=== PATIENT | female | born 1955 | race Caucasian/White ===

== ENCOUNTER 2017-08-14 09:48 | Inpatient (IN) | payer MEDICARE, MEDICAID ==
[~2017-08-14] VITALS: Ht 162.6 cm; Wt 104.7 kg
[~2017-08-14 09:48] MED LIST: ALLO100T PO; ATOR20TA PO; BUSP5TAB3 PO; DOCU100C23 PO; FLUT1DIS11; MONT10TA21 PO; NORCO10T PO; OXYB5TAB80 PO; PANT40TA4 PO; SPIIN IH; TOP100T PO; TOPI100T18 PO; TRAZ-91 PO
[2017-08-14] MEDS ORDERED: normal saline 1000ML IV soln IVB ONE (11:30)
[2017-08-14] MEDS ORDERED: albuterol 1.25 MG/3 ML (1/2 strength) nebule NEB ONE (11:30)
[2017-08-14] MEDS ORDERED: albuterol 2.5 MG/3 ML nebule ONE (11:36)
[2017-08-14 11:52] LABS: BASOPHILS % (AUTO) 0.2 % (0-1); EOSINOPHILS # (AUTO) 0.5 X10'3 (0-0.9); EOSINOPHILS % (AUTO) 2.9 % (0-6); HEMATOCRIT 35.9 % (35.0-45.0); HEMOGLOBIN 12.3 g/dl (12.0-16.0); LYMPHOCYTES # (AUTO) 1.4 X10'3 (1.1-4.8); LYMPHOCYTES % (AUTO) 7.7 % (21-51); MEAN CORPUSCULAR HEMOGLOBIN 32.3 PG (27.0-31.0); MEAN CORPUSCULAR HGB CONC 34.2 % (33.0-36.5); MEAN CORPUSCULAR VOLUME 94.3 FL (78-98); MEAN PLATELET VOLUME 5.9 FL (7.4-10.4); MONOCYTES # (AUTO) 1.1 X10'3 (0-0.9); MONOCYTES % (AUTO) 5.9 % (2-12); NEUTROPHILS % (AUTO) 83.3 % (42-75); PLATELET COUNT 412 X10'3 (140-440); RED BLOOD COUNT 3.81 X10'6 (4.20-5.60); RED CELL DISTRIBUTION WIDTH 12.5 % (11.5-14.5)
[2017-08-14 12:15] LABS: ALANINE AMINOTRANSFERASE 55 U/L (12-78); ALBUMIN 2.6 G/DL (3.4-5.0); ALBUMIN/GLOBULIN RATIO 0.5 (1.1-1.5); ALKALINE PHOSPHATASE 228 IU/L (46-116); ANION GAP 14 (8-16); ASPARTATE AMINO TRANSFERASE 36 U/L (10-37); BILIRUBIN,TOTAL 0.5 MG/DL (0.1-1.0); BLOOD UREA NITROGEN 14 MG/DL (7-18); BUN/CREATININE RATIO 13.1 (6.6-38.0); CALCIUM 9.2 MG/DL (8.5-10.1); CHLORIDE 104 MMOL/L (99-107); CREATININE 1.07 MG/DL (0.40-0.90); GLUCOSE 114 MG/DL (70-104); PARTIAL THROMBOPLASTIN TIME 35 SECONDS (22-32); PROTHROMBIN TIME 10.8 SECONDS (9.0-12.0); SODIUM 140 MMOL/L (135-145); TOTAL PROTEIN 7.7 G/DL (6.4-8.2); eGFR 52 ML/MIN
[2017-08-14] MEDS ORDERED: azithromycin/NS 500mg/250ml 250 ML IV ONE (13:10)
[2017-08-14] MEDS ORDERED: CefTRIAXone/D5W-Rocephin 1gm 50 ML IV ONE (13:10)
[2017-08-14 13:11] LABS: CLARITY,URINE CLEAR (Clear); COLOR,URINE YELLOW (Yellow); GLUCOSE, URINE NEGATIVE (Neg); KETONES,URINE 40 mg/dl (Neg); LEUKOCYTE ESTERASE ,URINE NEGATIVE (Neg); NITRITES, URINE NEGATIVE (Neg); OCCULT BLOOD,URINE TRACE-INTACT (Neg); PH,URINE 7.5 (4.8-8.0); PROTEIN,URINE 100 mg/dl (Neg)
[2017-08-14 13:15] LABS: UA COLLECTION TYPE CLN CATCH MIDSTREAM
[2017-08-14 13:18] LABS: RBC,URINE 0-2 /HPF (0-2); WBC,URINE 0-4 /HPF (0-4)
[2017-08-14 13:19] LABS: BACTERIA,URINE 1+ /HPF (Neg); SQUAMOUS EPITHELIAL CELL,UR MODERATE /LPF (FEW)
[2017-08-14] MEDS ORDERED: ipratropium/albuterol 3ml nebule NEB ONE (13:20)
[2017-08-14] MEDS ORDERED: methylPREDNISolone sod succ 125mg/2ml vial IV ONE (13:40)
[2017-08-14] MEDS: potassium 10mEq/100ml NS w/LIDOcaine (10mg/bag) IV SCH ×2 (13:42→16:11)
[2017-08-14] MEDS ORDERED: ASPI-1265 PO (14:03)
[2017-08-14] MEDS ORDERED: LAMO25TA62 PO ×2 (14:03)
[2017-08-14] MEDS ORDERED: potassium Cl 20 mEq SR tablet PO STA (14:11)
[2017-08-14] MEDS ORDERED: potassium Cl 40MEQ/NS 500ml 500 ML IV PRN ×2 (14:15)
[2017-08-14] MEDS ORDERED: albuterol 2.5 MG/3 ML nebule NEB PRN (14:15)
[2017-08-14] MEDS ORDERED: dextrose 50%-water 50ml dispensing syringe IV PRN ×2 (14:15)
[2017-08-14] MEDS ORDERED: magnesium 4gm in 100ml NS 100 ML IV PRN (14:15)
[2017-08-14] MEDS ORDERED: magnesium 2GM in 50ml NS 50 ML IV PRN (14:15)
[2017-08-14] MEDS ORDERED: MESSAGE TO PHARMACY PO ONE (14:15)
[2017-08-14] MEDS ORDERED: LORazepam 0.5 MG tablet PO PRN (14:15)
[2017-08-14] MEDS ORDERED: bisacodyl 10mg suppository rectal RC PRN (14:15)
[2017-08-14] MEDS ORDERED: morphine 2 MG/ML inj. syringe IV PRN (14:15)
[2017-08-14] MEDS ORDERED: glucagon, human recombinant 1mg kit SUBCUT PRN (14:15)
[2017-08-14] MEDS ORDERED: dextrose ORAL solution 15 GM/59 ML bottle PO PRN ×2 (14:15)
[2017-08-14] MEDS ORDERED: magnesium Cl slow-release 64mg tablet PO PRN (14:15)
[2017-08-14] MEDS ORDERED: magnesium hydroxide 30ml (MOM) UD suspension PO PRN (14:15)
[2017-08-14] MEDS ORDERED: ondansetron/PF 4mg/2ml inj IV PRN (14:15)
[2017-08-14] MEDS ORDERED: mag hydrox/Alum hydrox/simeth 30ml oral suspension PO PRN (14:15)
[2017-08-14] MEDS ORDERED: acetaminophen 325mg tablet PO PRN (14:15)
[2017-08-14] MEDS ORDERED: potassium Cl 20 mEq SR tablet PO PRN (14:15)
[2017-08-14] MEDS ORDERED: insulin Lispro (HumaLOG) vial - multi-dose SQ SCH (14:15)
[2017-08-14] MEDS ORDERED: HYDROcodone/acetaminophen 5mg/325mg tablet PO PRN (14:15)
[2017-08-14] MEDS ORDERED: guaiFENesin/codeine phos 10ml UD oral syrup PO PRN (14:30)
[2017-08-14 14:46] LABS: HEMOGLOBIN A1C 5.5 % (4.5-6.2)
[2017-08-14] MEDS: normal saline 1000ml 1,000 ML IV SCH ×2 (14:50→19:03)
[2017-08-14] MEDS ORDERED: ipratropium 0.5 MG/2.5ML nebule IH SCH (15:00)
[2017-08-14] MEDS ORDERED: albuterol 2.5 MG/3 ML nebule NEB SCH (15:00)
[2017-08-14] MEDS ORDERED: potassium 10mEq/100ml NS w/LIDOcaine (10mg/bag) IV ONE (16:02)
[2017-08-14] MEDS: ipratropium/albuterol 3ml nebule NEB SCH ×2 (16:31→20:23)
[2017-08-14 18:28] VITALS: BP 120/73
[2017-08-14] MEDS ORDERED: ipratropium/albuterol 3ml nebule NEB SCH (19:00)
[2017-08-14] MEDS: busPIRone 5mg tablet PO SCH (20:16)
[2017-08-14] MEDS: allopurinol 100mg tablet PO SCH (20:18)
[2017-08-14] MEDS: topiramate 100mg tablet PO SCH (20:18)
[2017-08-14] MEDS: lamoTRIgine 25mg tablet PO SCH (20:20)
[2017-08-14] MEDS: atorvastatin 20mg tablet PO SCH (20:23)
[2017-08-14] MEDS ORDERED: temazepam 15mg capsule PO PRN (21:00)
[2017-08-14] MEDS ORDERED: insulin glargine (Lantus) pen - multi-dose SQ ONE (22:40)
[2017-08-14] MEDS: insulin glargine (Lantus) pen - multi-dose SQ SCH (22:54)
[2017-08-15] VITALS: BP 123/67
[2017-08-15] MEDS: potassium Cl 20 mEq SR tablet PO PRN ×4 (00:32→22:32)
[2017-08-15] MEDS: ipratropium/albuterol 3ml nebule NEB SCH ×3 (02:22→20:42)
[2017-08-15 04:45] LABS: BASOPHILS % (AUTO) 0.2 % (0-1); EOSINOPHILS # (AUTO) 0.2 X10'3 (0-0.9); EOSINOPHILS % (AUTO) 1.3 % (0-6); HEMATOCRIT 31.3 % (35.0-45.0); HEMOGLOBIN 10.8 g/dl (12.0-16.0); LYMPHOCYTES # (AUTO) 0.9 X10'3 (1.1-4.8); MEAN CORPUSCULAR HEMOGLOBIN 32.4 PG (27.0-31.0); MEAN CORPUSCULAR HGB CONC 34.5 % (33.0-36.5); MEAN CORPUSCULAR VOLUME 94.1 FL (78-98); MONOCYTES # (AUTO) 0.6 X10'3 (0-0.9); MONOCYTES % (AUTO) 4.4 % (2-12); NEUTROPHILS # (AUTO) 12.5 X10'3 (1.8-7.7); NEUTROPHILS % (AUTO) 88.1 % (42-75); PLATELET COUNT 376 X10'3 (140-440); RED BLOOD COUNT 3.33 X10'6 (4.20-5.60); RED CELL DISTRIBUTION WIDTH 12.6 % (11.5-14.5); WHITE BLOOD COUNT 14.2 X10'3 (4.5-11.0)
[2017-08-15] MEDS: normal saline 1000ml 1,000 ML IV SCH ×2 (06:24→21:28)
[2017-08-15 06:35] LABS: ALBUMIN 2.3 G/DL (3.4-5.0); ANION GAP 16 (8-16); BLOOD UREA NITROGEN 17 MG/DL (7-18); BUN/CREATININE RATIO 18.1 (6.6-38.0); CALCIUM 8.7 MG/DL (8.5-10.1); CHLORIDE 110 MMOL/L (99-107); CREATININE 0.94 MG/DL (0.40-0.90); GLUCOSE 121 MG/DL (70-104); MAGNESIUM 2.1 MG/DL (1.5-2.4); POTASSIUM 3.4 MMOL/L (3.5-5.1); SODIUM 143 MMOL/L (135-145); TOTAL CARBON DIOXIDE 16.8 MMOL/L (24-32); eGFR 61 ML/MIN
[2017-08-15 07:00] VITALS: BP 133/72
[2017-08-15] MEDS: busPIRone 5mg tablet PO SCH ×2 (07:49→19:41)
[2017-08-15] MEDS: allopurinol 100mg tablet PO SCH ×2 (07:49→19:41)
[2017-08-15] MEDS: aspirin 81mg tab.chew PO SCH (07:50)
[2017-08-15] MEDS: lamoTRIgine 25mg tablet PO SCH ×2 (07:50→21:21)
[2017-08-15] MEDS: topiramate 100mg tablet PO SCH ×2 (07:50→21:20)
[2017-08-15] MEDS: levoFLOXACIN-Levaquin 750MG/D5 150 ML IV SCH (07:51)
[2017-08-15] MEDS: enoxaparin 40mg/0.4ml syringe SUBCUT SCH (07:52)
[2017-08-15] MEDS: K and/or MAG REPLACEMENT MC SCH (08:00)
[2017-08-15 11:00] VITALS: BP 116/65
[2017-08-15] MEDS: guaiFENesin/codeine phos 10ml UD oral syrup PO PRN (14:26)
[2017-08-15] MEDS: methylPREDNISolone sod succ 125mg/2ml vial IV SCH ×2 (14:26→21:20)
[2017-08-15 19:00] VITALS: BP 112/85
[2017-08-15] MEDS: insulin glargine (Lantus) pen - multi-dose SQ SCH (21:00)
[2017-08-15] MEDS: atorvastatin 20mg tablet PO SCH (21:21)
[2017-08-16] VITALS: BP 131/78
[2017-08-16] MEDS: ipratropium/albuterol 3ml nebule NEB SCH ×4 (02:36→20:10)
[2017-08-16] MEDS: guaiFENesin/codeine phos 10ml UD oral syrup PO PRN ×3 (05:36→21:16)
[2017-08-16 07:00] VITALS: BP 160/79
[2017-08-16 07:53] LABS: ALBUMIN 2.1 G/DL (3.4-5.0); ANION GAP 11 (8-16); BLOOD UREA NITROGEN 15 MG/DL (7-18); BUN/CREATININE RATIO 18.5 (6.6-38.0); CALCIUM 8.6 MG/DL (8.5-10.1); CHLORIDE 113 MMOL/L (99-107); CREATININE 0.81 MG/DL (0.40-0.90); GLUCOSE 114 MG/DL (70-104); PHOSPHORUS 3.2 MG/DL (2.3-4.5); SODIUM 143 MMOL/L (135-145); TOTAL CARBON DIOXIDE 18.6 MMOL/L (24-32); eGFR 72 ML/MIN
[2017-08-16 07:55] LABS: BASOPHILS % (AUTO) 0.2 % (0-1); EOSINOPHILS # (AUTO) 0.2 X10'3 (0-0.9); EOSINOPHILS % (AUTO) 1.7 % (0-6); HEMATOCRIT 32.3 % (35.0-45.0); HEMOGLOBIN 10.9 g/dl (12.0-16.0); LYMPHOCYTES # (AUTO) 1.2 X10'3 (1.1-4.8); LYMPHOCYTES % (AUTO) 9.9 % (21-51); MEAN CORPUSCULAR HGB CONC 33.6 % (33.0-36.5); MEAN CORPUSCULAR VOLUME 95.3 FL (78-98); MEAN PLATELET VOLUME 6.2 FL (7.4-10.4); MONOCYTES # (AUTO) 0.4 X10'3 (0-0.9); NEUTROPHILS # (AUTO) 10.3 X10'3 (1.8-7.7); NEUTROPHILS % (AUTO) 85.2 % (42-75); PLATELET COUNT 406 X10'3 (140-440); RED BLOOD COUNT 3.39 X10'6 (4.20-5.60); RED CELL DISTRIBUTION WIDTH 12.6 % (11.5-14.5); WHITE BLOOD COUNT 12.1 X10'3 (4.5-11.0)
[2017-08-16] MEDS: K and/or MAG REPLACEMENT MC SCH (08:00)
[2017-08-16] MEDS: topiramate 100mg tablet PO SCH ×2 (08:01→21:14)
[2017-08-16] MEDS: methylPREDNISolone sod succ 125mg/2ml vial IV SCH ×3 (08:01→21:11)
[2017-08-16] MEDS: busPIRone 5mg tablet PO SCH ×2 (08:02→21:10)
[2017-08-16] MEDS: levoFLOXACIN-Levaquin 750MG/D5 150 ML IV SCH (08:02)
[2017-08-16] MEDS: lamoTRIgine 25mg tablet PO SCH ×2 (08:02→21:12)
[2017-08-16] MEDS: allopurinol 100mg tablet PO SCH ×2 (08:02→21:11)
[2017-08-16] MEDS: enoxaparin 40mg/0.4ml syringe SUBCUT SCH (08:03)
[2017-08-16] MEDS: aspirin 81mg tab.chew PO SCH (08:21)
[2017-08-16 11:00] VITALS: BP 114/54
[2017-08-16] MEDS: normal saline 1000ml 1,000 ML IV SCH (13:42)
[2017-08-16 19:00] VITALS: BP 129/73
[2017-08-16] MEDS: atorvastatin 20mg tablet PO SCH (21:12)
[2017-08-16] MEDS: insulin glargine (Lantus) pen - multi-dose SQ SCH (21:30)
[2017-08-17] VITALS: BP 107/58
[2017-08-17] MEDS: guaiFENesin/codeine phos 10ml UD oral syrup PO PRN ×2 (00:59→05:08)
[2017-08-17] MEDS: ipratropium/albuterol 3ml nebule NEB SCH ×2 (02:24→07:12)
[2017-08-17] MEDS: normal saline 1000ml 1,000 ML IV SCH (02:34)
[2017-08-17 05:13] LABS: BASOPHILS % (AUTO) 0.2 % (0-1); EOSINOPHILS # (AUTO) 0.2 X10'3 (0-0.9); EOSINOPHILS % (AUTO) 1.5 % (0-6); HEMATOCRIT 33.8 % (35.0-45.0); HEMOGLOBIN 11.5 g/dl (12.0-16.0); LYMPHOCYTES # (AUTO) 1.1 X10'3 (1.1-4.8); LYMPHOCYTES % (AUTO) 8.3 % (21-51); MEAN CORPUSCULAR HEMOGLOBIN 32.2 PG (27.0-31.0); MEAN CORPUSCULAR HGB CONC 34.1 % (33.0-36.5); MEAN CORPUSCULAR VOLUME 94.4 FL (78-98); MONOCYTES # (AUTO) 0.6 X10'3 (0-0.9); MONOCYTES % (AUTO) 4.2 % (2-12); NEUTROPHILS # (AUTO) 11.3 X10'3 (1.8-7.7); NEUTROPHILS % (AUTO) 85.8 % (42-75); PLATELET COUNT 482 X10'3 (140-440); RED BLOOD COUNT 3.58 X10'6 (4.20-5.60); RED CELL DISTRIBUTION WIDTH 12.8 % (11.5-14.5); WHITE BLOOD COUNT 13.2 X10'3 (4.5-11.0)
[2017-08-17 05:42] LABS: ALBUMIN 2.3 G/DL (3.4-5.0); ANION GAP 13 (8-16); BLOOD UREA NITROGEN 18 MG/DL (7-18); BUN/CREATININE RATIO 16.7 (6.6-38.0); CALCIUM 8.8 MG/DL (8.5-10.1); CHLORIDE 113 MMOL/L (99-107); CREATININE 1.08 MG/DL (0.40-0.90); GLUCOSE 145 MG/DL (70-104); MAGNESIUM 2.1 MG/DL (1.5-2.4); SODIUM 146 MMOL/L (135-145); TOTAL CARBON DIOXIDE 20.5 MMOL/L (24-32); eGFR 52 ML/MIN
[2017-08-17 07:00] VITALS: BP 144/69
[2017-08-17] MEDS: allopurinol 100mg tablet PO SCH (08:00)
[2017-08-17] MEDS: K and/or MAG REPLACEMENT MC SCH (08:00)
[2017-08-17] MEDS: topiramate 100mg tablet PO SCH (08:01)
[2017-08-17] MEDS: lamoTRIgine 25mg tablet PO SCH (08:01)
[2017-08-17] MEDS: busPIRone 5mg tablet PO SCH (08:02)
[2017-08-17] MEDS: aspirin 81mg tab.chew PO SCH (08:03)
[2017-08-17] MEDS: methylPREDNISolone sod succ 125mg/2ml vial IV SCH ×2 (08:03→13:00)
[2017-08-17] MEDS: enoxaparin 40mg/0.4ml syringe SUBCUT SCH (08:04)
[2017-08-17] MEDS: levoFLOXACIN-Levaquin 750MG/D5 150 ML IV SCH (08:04)
[2017-08-17] MEDS ORDERED: PRED20TA PO (12:41)
[2017-08-17] MEDS ORDERED: LEVO750T21 PO (12:42)
== END 2017-08-17 15:10 | disposition home or self-care (01) | DRG 871 ==
LOC: ER 09:49 → ED HOLD 12:25 → UNDOADMIN 12:25 → ED HOLD 13:22 → EDBEDREQ 16:42 → SUR 3N 18:23
PROVIDERS: ADMIT Internal Medicine Nephrology; ATTEND Family Medicine
DX: A41.9 Sepsis, unspecified organism (principal); J18.9 Pneumonia, unspecified organism; J44.0 Chronic obstructive pulmonary disease with (acute) lower respiratory infection; J44.1 Chronic obstructive pulmonary disease with (acute) exacerbation; G89.29 Other chronic pain; M10.9 Gout, unspecified; R06.03 Acute respiratory distress; M54.9 Dorsalgia, unspecified; E11.9 Type 2 diabetes mellitus without complications; F41.9 Anxiety disorder, unspecified; G40.909 Epilepsy, unspecified, not intractable, without status epilepticus; G47.33 Obstructive sleep apnea (adult) (pediatric); K21.9 Gastro-esophageal reflux disease without esophagitis; Z98.51 Tubal ligation status; Z79.82 Long term (current) use of aspirin; Z79.899 Other long term (current) drug therapy; Z87.891 Personal history of nicotine dependence; Z80.3 Family history of malignant neoplasm of breast; Z82.49 Family history of ischemic heart disease and other diseases of the circulatory system
CPT/HCPCS: 36415; 71046; 80048; 80053; 81001; 82948; 83036; 83605; 83735; 83880; 84100; 84132; 84145; 84484; 85025; 85610; 85730; 87040; 87070; 87502; 87503; 93005; 94640; 94760; 96365; 96375; 97116; 97162; 97530; 99285; J0456; J0696; J1650; J1815; J1956; J2930; J3480; J7030